=== PATIENT | female | born 1945 | race Caucasian/White ===

== ENCOUNTER → 2016-12-27 | Outpatient (CLI) | payer BC ==
[~2016-12-27] MED LIST: ALLO100T PO; ASPEC81 PO; ATEN-175 PO; ATOR-24 PO; CLTP PO; LEVO-217 PO; LIDOCAINE HCL 2% 2 ML VIAL (20MG/ML) ONE; LISI-725 PO; MAGNESIUM PO; MIDAZOLAM HCL 1 MG/ML 2ML VIAL ONE; MULT-506 PO; NIAC1TAB59 PO; PRLSR20 PO; PROPOFOL IV EMULSION 10 MG/ML 20 ML VIAL IV ONE; TEMA15CA4 PO
[2016-12-27 12:23] LABS: HEMATOCRIT 40.1 % (37-47); MEAN CELL VOLUME 93.9 fL (80-100); MEAN CORPUSCULAR HEMOGLOBIN 32.1 pg (25-34); MEAN CORPUSCULAR HGB CONC 34.2 g/dl (32-36); MEAN PLATELET VOLUME 9.1 fL (7.4-10.4); PLATELET COUNT 145 K/uL (130-400); RED BLOOD COUNT 4.27 M/uL (4.2-5.4); WHITE BLOOD COUNT 4.78 K/uL (4.8-10.8)
[2016-12-27 13:01] LABS: ESTIMATED AVERAGE GLUCOSE 120 mg/dl; HA1C FLAG Normal (Normal)
[2016-12-27 13:05] LABS: ALT/SGPT 42 U/L (12-78); AST/SGOT 31 U/L (15-37); BLOOD UREA NITROGEN 26 mg/dl (7-18); BUN/CREATININE RATIO 18.4 (10-20); CALCIUM 9.6 mg/dl (8.5-10.1); CARBON DIOXIDE 25 mmol/L (21-32); CHLORIDE 104 mmol/L (98-107); CHOLESTEROL 132 mg/dl (0-200); GLUCOSE,FASTING 111 mg/dl (70-99); MAGNESIUM 2.1 mg/dl (1.8-2.4); POTASSIUM 3.9 mmol/L (3.5-5.1); SODIUM 138 mmol/L (136-145); TRIGLYCERIDES 193 mg/dl (0-150); VERY LOW DENSITY LIPOPROT CALC 39 mg/dl
[2016-12-27 13:13] LABS: ALKALINE PHOSPHATASE 74 U/L (45-117); CHOLESTEROL/HDL RATIO 2.7; HDL CHOLESTEROL 49 mg/dl
== END | disposition home or self-care (01) ==
LOC: C.LABPBG 07:32
PROVIDERS: ATTEND Family Medicine
DX: I34.0 Nonrheumatic mitral (valve) insufficiency (principal); I10 Essential (primary) hypertension; Z82.49 Family history of ischemic heart disease and other diseases of the circulatory system; Z79.899 Other long term (current) drug therapy

== ENCOUNTER → 2017-07-31 | Outpatient (CLI) | payer BC ==
[~2017-07-31] MED LIST changes: -LIDOCAINE HCL 2% 2 ML VIAL (20MG/ML) ONE; -MIDAZOLAM HCL 1 MG/ML 2ML VIAL ONE; -PROPOFOL IV EMULSION 10 MG/ML 20 ML VIAL IV ONE
[2017-07-31 13:23] LABS: HEMATOCRIT 40.9 % (37-47); MEAN CELL VOLUME 92.7 fL (80-100); MEAN CORPUSCULAR HEMOGLOBIN 31.7 pg (25-34); MEAN CORPUSCULAR HGB CONC 34.2 g/dl (32-36); MEAN PLATELET VOLUME 9.2 fL (7.4-10.4); PLATELET COUNT 152 K/uL (130-400); RED CELL DISTRIBUTION WIDTH CV 13.1 % (11.5-14.5); RED CELL DISTRIBUTION WIDTH SD 44.5 fL (36.4-46.3)
[2017-07-31 14:12] LABS: ALBUMIN 3.9 gm/dl (3.4-5.0); ALT/SGPT 44 U/L (12-78); AST/SGOT 30 U/L (15-37); BLOOD UREA NITROGEN 28 mg/dl (7-18); CALCIUM 9.2 mg/dl (8.5-10.1); CARBON DIOXIDE 27 mmol/L (21-32); CREATININE 1.43 mg/dl (0.60-1.20); GLUCOSE,FASTING 124 mg/dl (70-99); POTASSIUM 4.2 mmol/L (3.5-5.1); SODIUM 136 mmol/L (136-145)
[2017-07-31 14:27] LABS: ALKALINE PHOSPHATASE 74 U/L (45-117); CHOLESTEROL 118 mg/dl (0-200); LDL CHOLESTEROL (DIRECT) 42 mg/dl; TOTAL PROTEIN 7.8 gm/dl (6.4-8.2)
== END | disposition home or self-care (01) ==
LOC: C.LABPBG 07:39
PROVIDERS: ATTEND Internal Medicine Cardiovascular Disease
DX: I10 Essential (primary) hypertension (principal); I34.0 Nonrheumatic mitral (valve) insufficiency; R06.02 Shortness of breath; E78.5 Hyperlipidemia, unspecified; Z79.899 Other long term (current) drug therapy

== ENCOUNTER → 2018-01-25 | Outpatient (CLI) | payer BC ==
[2018-01-25 12:21] LABS: HEMATOCRIT 38.7 % (37-47); HEMOGLOBIN 12.8 g/dL (12.0-16.0); MEAN CELL VOLUME 94.2 fL (80-100); MEAN CORPUSCULAR HEMOGLOBIN 31.1 pg (25-34); MEAN CORPUSCULAR HGB CONC 33.1 g/dl (32-36); MEAN PLATELET VOLUME 9.3 fL (7.4-10.4); PLATELET COUNT 183 K/uL (130-400); RED CELL DISTRIBUTION WIDTH CV 13.2 % (11.5-14.5); RED CELL DISTRIBUTION WIDTH SD 44.6 fL (36.4-46.3)
[2018-01-25 12:54] LABS: ALBUMIN 3.8 gm/dl (3.4-5.0); ALKALINE PHOSPHATASE 79 U/L (45-117); ALT/SGPT 39 U/L (12-78); AST/SGOT 28 U/L (15-37); BLOOD UREA NITROGEN 24 mg/dl (7-18); CALCIUM 9.6 mg/dl (8.5-10.1); CARBON DIOXIDE 28 mmol/L (21-32); CHOLESTEROL 117 mg/dl (0-200); CREATININE 1.57 mg/dl (0.60-1.20); GLUCOSE 106 mg/dl (70-99); LDL CHOLESTEROL (DIRECT) 37 mg/dl; POTASSIUM 4.8 mmol/L (3.5-5.1); SODIUM 137 mmol/L (136-145); TOTAL PROTEIN 7.4 gm/dl (6.4-8.2)
[2018-01-25 13:28] LABS: HEMOGLOBIN A1C 6.2 % (4.5-5.6)
== END | disposition home or self-care (01) ==
LOC: C.LABPBG 07:34
PROVIDERS: ATTEND Internal Medicine Cardiovascular Disease
DX: R07.9 Chest pain, unspecified (principal); R06.02 Shortness of breath; I10 Essential (primary) hypertension; R53.83 Other fatigue; E78.5 Hyperlipidemia, unspecified

== ENCOUNTER 2022-01-21 16:44 | Observation (INO) ==
[2022-01-21] MEDS ORDERED: SODIUM CHLORIDE 0.9% 1000ML 1,000 ML IV SCH (17:15)
[2022-01-21 18:16] LABS: Basophils # (auto) 0.01 K/uL (0-0.2); Basophils % (auto) 0.3 %; Eosinophils # (auto) 0.02 K/uL (0-0.50); Eosinophils % (auto) 0.6 %; Hematocrit (blood only) 35.8 % (34.1-44.9); Immature Granulocytes # (auto) 0.01 K/uL (0.00-0.02); Immature Granulocytes % (auto) 0.3 %; Lymphocytes # (auto) 0.89 K/uL (1.2-3.4); Lymphocytes % (auto) 27.8 %; Mean Platelet Volume 8.8 fL (9.4-12.3); Monocytes # (auto) 0.35 K/uL (0.24-0.82); Monocytes % (auto) 10.9 %; Neutrophils # (auto) 1.92 K/uL (1.4-6.5); Neutrophils % (auto) 60.1 %; Platelet Count 114 K/uL (130-400)
--- NOTE | 2022-01-21 18:30 | XRay Report ---
XR chest 1V portable HISTORY: weakness COMPARISON: Chest 07/01/2011. FINDINGS: The lungs are clear. Cardiac silhouette is normal in size. No pleural effusions. No pneumot horax. Calcified plaque noted at the aortic knob. This remains unchanged. IMPRESSION: No acute process. ACT 112: Negative or not required by law. Electronically signed by: López Lara M.D. 01/21/2022 6:29 PM
[2022-01-21 18:39] LABS: Mean Corpuscular Hgb Conc 33.5 g/dL (32.0-36.0); Mean Corpuscular Volume 92.5 fL (80.0-100.0); Red Blood Count 3.87 M/uL (3.93-5.22)
[2022-01-21 18:41] LABS: Albumin Globulin Ratio 1.5 (0.9-2); Albumin Level 3.8 gm/dl (3.4-5.0); BUN Creatinine Ratio 17.6 (10-20); Bilirubin,Total 0.7 mg/dl (0.2-1.0); Calcium 8.4 mg/dl (8.5-10.1); Creatinine Clr Calc Pharmacy 31.2 ml/min; Est GFR (African American) 42.1 ml/min; Est GFR (Non-African American) 36.3 ml/min; Globulin 2.5 gm/dl (2.5-4.0); Magnesium 1.6 mg/dl (1.7-2.4); Potassium 4.4 mmol/L (3.5-5.1); Total Protein 6.3 gm/dl (6.0-8.3)
[2022-01-21 18:43] LABS: Troponin I High Sensitivity 19.8 pg/ml (0-14)
--- NOTE | 2022-01-21 21:35 | History & Physical Report ---
Date of Service January 21, 2022 Assessment & Plan (1) Diarrhea: Plan: - Started on 01/13, ongoing since then with yellow diarrhea immediately following any meals. - LFTs within normal limits, patient is without her gallbladder. - KUB ordered, consider CT A/P although would have to be done without contrast as she has CKD. - Also order GI stool panel, once back if C. difficile ruled out, can give antidiarrheal--would start with Questran. - Supportive care if nonspecific colitis: IVF, Tylenol for pain/fever, anti emetics, anti-diarrheals. (2) COVID-19: Plan: - Tested positive on here, positive as of 01/11 with respiratory symptoms. Her diarrhea started 2 days later on 01/13, has been without any respiratory symptoms and is on room air. - Not vaccinated. - Supportive care for now, Tylenol, antiemetics, Tessalon Perles should she develop cough. - No indiction for Rituximab or Decadron currently. (3) Pancytopenia: Plan: - Most likely 2/2 secondary to COVID infection, - Daily CBC. (4) Hypomagnesemia: Plan: - 1.6, will replete and recheck with AM labs. (5) Elevated troponin: Plan: - Initial 19.8, repeat 24.6. EKG with NSR, no evidence of ischemia or infarct. Patient without any CP. Suspect midlly elevated due to COVID infection. - Trend overnight and admit to monitored bed. (6) Hypertension: Plan: - Hold lisinopril for now. - Has CKD, BUN and creatinine consistent with baseline, however will hold for now at least while we rehydrate her. (7) Hyperlipidemia: Plan: - Continue atorvastatin 20 mg at night. (8) Hypothyroidism: Plan: - Continue levothyroxine 25 mcg daily. - Checking TSH. (9) Insomnia: Plan: - Continue temazepam as needed. (10) Type 2 diabetes mellitus: Plan: - Diet and exercise controlled. Glucose on BMP 109. Last A1c in August was 6.4%. - A1c with a.m. labs. (11) Gout: Plan: - Continue allopurinol 100 mg every other day. (12) Chronic kidney disease, stage III (moderate): Plan: - BUN 5 and creatinine at 1.42, both at baseline today. -Receiving IVF as above for dehydration due to diarrhea illness. (13) Acid reflux: Plan: - Continue Tums as needed. Plan - Admit to med telemetry will we trend troponin. - SCDs and Heparin for VTE ppx. - Full Code. History of Present Illness Chief Complaint: nausea, vomiting, diarrhea and SOB Primary Care Provider: Breanna Evans DO Rola Gaytan is a 76 y/o female with past medical history of hypertension, hyperlipidemia, hypothyroidism, DM2, CKD 3, GERD, gout, and insomnia who presents today with ongoing diarrhea for over a week now. Patient began experiencing this on January 13, she is having yellow diarrhea that follows any meal. She not had any fever or chills, abdominal pain, nausea, vomiting, or blood in the stool. She has not been out to eat recently or prior to onset of diarrhea, no history of C. difficile or recent antibiotic use, no recent travel. Her is sick at home with COVID-19 infection, he tested positive on 01/11. His symptoms are respiratory in nature, he has not experienced diarrhea. In ED, she is hypertensive 160/101, vital signs within normal limits, 97% on room air. Labs significant for pancytopenia, WBC 3.20, RBC 3.87, platelets 114. Sodium slightly low at 133, BUN 25 and creatinine 1.42 appears to be her baseline. Calcium 8.4, magnesium 1.6, initial hs trop 19.8, repeat 24.6. CXR without acute process noted. Allergies Allergy/AdvReac Type Severity Reaction Status Date / Time ezetimibe Allergy Intermediate RASH Verified 01/21/22 18:36 Sulfa (Sulfonamide AdvReac Intermediate N/V Verified 01/21/22 18:36 Antibiotics) Home Medications Medication Instructions Recorded Confirmed Type aspirin 81 mg tablet,delayed 81 mg PO HS 02/23/19 01/21/22 History release loratadine 10 mg tablet (Claritin) 10 mg PO DAILY PRN allergy symptoms 03/04/20 01/21/22 History temazepam 15 mg capsule 15 mg PO HS PRN sleep #30 caps 11/08/20 01/21/22 Rx calcium carbonate 600 mg-vitamin 1 tab PO DAILY 03/07/21 01/21/22 History D3 20 mcg (800 unit) chewable tablet (Caltrate 600 plus D) multivitamin 1 tab PO DAILY 03/07/21 01/21/22 History lisinopril 40 mg tablet 40 mg PO DAILY #90 tabs 09/06/21 01/21/22 Rx levothyroxine 25 mcg tablet 25 mcg PO DAILY #90 tabs 10/20/21 01/21/22 Rx atenolol 100 mg tablet 100 mg PO DAILY #90 tabs 01/19/22 01/21/22 Rx allopurinol 100 mg tablet 100 mg PO Q OTHER DAY 01/21/22 01/21/22 History atorvastatin 20 mg tablet 20 mg PO HS 01/21/22 01/21/22 History magnesium 250 mg tablet 250 mg PO DAILY 01/21/22 01/21/22 History Past Med/Surg History Medical History (Updated 01/21/22 @ 23:14 by Kamran Bryant) Acid reflux Chronic kidney disease, stage III (moderate) Gout Hemorrhoids History of hiatal hernia History of renal artery stenosis R renal A, s/p stent Hyperlipidemia Hypertension Hypothyroidism Insomnia Internal hemorrhoids 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 Renal artery arteriosclerosis Type 2 diabetes mellitus Surgical History History of cholecystectomy History of hysterectomy d/t DUB History of stent insertion of renal artery R side S/P cataract extraction Family History Brother Bladder cancer Father Cancer Hypertension Mother Diabetes Denies family history of Ovarian cancer Prostate cancer Myocardial infarction Breast cancer Social History Smoking Status: Never smoker Second Hand Exposure: No; Do You Dip or Chew Tobacco: No; Tobacco Cessation Education Requested by Patient: No Hx Alcohol Use: No Hx Substance Use: No Preferred Language: Chinese Communication Ability: Effective Visual Impairment: No Limitations Hearing Ability: Normal Stars Coordinator Required: No Beliefs That Will Affect Care: None marital status: Current Living Situation: Spouse Current Living Situation Comment: and 2 cats current occupational status: retired Other Information That Helps Us Care for You: No Feels Safe at Home: Yes Safety Concerns: Feels Safe At This Time Childhood Exposure to Second-Hand Smoke: Yes Diet Comment: regular caffeine: No during the past year weight has: remained stable Dental Care, Regularly: Yes Physical Activity Frequency: 5-6 Times per Week Seatbelt Use: always Sunscreen Use: Yes Assistive Devices: Glasses Results & Data Results & Data ([facility]) Vital Signs (Past 12 Hours) Vital Signs Temp Pulse Pulse Resp BP BP Pulse Ox 01/21/22 21:00 75 18 160/101 H 97 01/21/22 19:00 72 18 144/73 H 96 01/21/22 16:55 37.1 C 69 22 164/79 H 99 O2 Del Method 01/21/22 21:00 Room Air 01/21/22 19:00 Room Air 01/21/22 16:55 Room Air Laboratory Results Abnormal lab results 01/21/22 01/21/22 01/21/22 Range/Units 17:46 18:02 18:02 WBC 3.20 L (4.8-10.8) K/ul RBC 3.87 L (3.93-5.22) M/uL Plt Count 114 L (130-400) K/uL MPV 8.8 L (9.4-12.3) fL Lymph # (Auto) 0.89 L (1.2-3.4) K/uL Sodium 133 L (136-145) mmol/L BUN 25 H (6-23) mg/dl Creatinine 1.42 H (0.6-1.2) mg/dl Glucose 109 H (70-99(Fasting)) mg/dl Calcium 8.4 L (8.5-10.1) mg/dl Magnesium 1.6 L (1.7-2.4) mg/dl Troponin I High Sens 19.8 H (0-14) pg/ml SARS-CoV-2, RNA, NAAT POSITIVE A* (NEGATIVE) 01/21/22 Range/Units 19:57 WBC (4.8-10.8) K/ul RBC (3.93-5.22) M/uL Plt Count (130-400) K/uL MPV (9.4-12.3) fL Lymph # (Auto) (1.2-3.4) K/uL Sodium (136-145) mmol/L BUN (6-23) mg/dl Creatinine (0.6-1.2) mg/dl Glucose (70-99(Fasting)) mg/dl Calcium (8.5-10.1) mg/dl Magnesium (1.7-2.4) mg/dl Troponin I High Sens 24.6 H (0-14) pg/ml SARS-CoV-2, RNA, NAAT (NEGATIVE) Diagnostic Findings Chest X-Ray 01/21/22 17:01 XR chest 1V portable HISTORY: weakness COMPARISON: Chest 07/01/2011. FINDINGS: The lungs are clear. Cardiac silhouette is normal in size. No pleural effusions. No pneumothorax. Calcified plaque noted at the aortic knob. This remains unchanged. IMPRESSION: No acute process. ACT 112: Negative or not required by law. Electronically signed by: López Lara M.D. 01/21/2022 6:29 PM ECG Additional Comments: Normal sinus rhythm Normal ECG When compared with ECG of 01-JUL-2011 08:22, No significant change was found. Code Status & VTE Plan Code Status Full Code. Supervising Physician Co-Signing Physician Notes Attending addendum: I have physically seen this patient, have supervised the LEVI's activities, and agree with the H&P unless as otherwise noted. Assessment and Plan: Nausea/vomiting/diarrhea- Order KUB to assess for possible bowel obstruction versus ileus KUB unrevealing, will will consider CT abdomen pelvis Order stool PCR Cholestyramine 4 g p.o. twice daily to 4 times daily to control symptoms LR at 80 mils per hour Acetaminophen 650 mg p.o. every 6 hours as needed for mild pain or fever Elevated troponin- The patient will be admitted to telemetry for serial cardiac enzymes, serial EKG's, cardiac rhythm monitoring and a 2-D echocardiogram with Dopplers. Troponin initially 19.8, with follow-up 24.6 Likely supply demand mismatch Follow serially COVID-19 positivity- Pulse ox 96% room air Unvaccinated Symptomatic control as above No indication for remdesivir or dexamethasone CKD stage III- Creatinine 1.42 on admission At baseline 1.36-1.60 Follow laboratory serially Did receive 1 L normal saline in ED Hydration otherwise as noted PG Care Time/CCT Total # of Minutes Spent Total Time Spent with Patient: Total time spent is greater than 50% in coordination of care (as documented) at patient's floor/unit and/or counseling patient: Coding Level of Care Code 22926 Initial Inpt Care Lvl 2 Diagnoses Diarrhea R19.7 COVID-19 U07.1 Pancytopenia D61.818 Hypomagnesemia E83.42 Elevated troponin R77.8 Hypertension I10 Hyperlipidemia E78.5 Hypothyroidism E03.9 Insomnia G47.00 Type 2 diabetes mellitus E11.9 Gout M10.9 Chronic kidney disease, stage III (moderate) N18.3 Acid reflux K21.9
--- NOTE | 2022-01-21 22:59 | Emergency Department Note ---
History of Present Illness General Chief complaint: Diarrhea Stated complaint: NAUSEA, VOMITING, ILLNESS Time Seen by Provider: 01/21/22 17:09 History of Present Illness Provider Complaint: + nausea, + vomiting and + diarrhea Onset (ago): week(s) (1.5) Description of Vomiting: no bilious, no bloody or no coffee grounds Description of Diarrhea: no tarry or no bloody (bright red) Associated Abdominal Pain: No Context: + sick contacts ( was diagnosed with COVID on January 11, 2022); no possible food poisoning, no alcohol abuse or no marijuana use Associated symptoms: + myalgias, + cough, + fever/chills, + malaise, + shortness of breath and + weakness; no syncope or no altered mental status Home Medications Medication Instructions Recorded Confirmed Type aspirin 81 mg tablet,delayed 81 mg PO HS 02/23/19 01/21/22 History release loratadine 10 mg tablet (Claritin) 10 mg PO DAILY PRN allergy symptoms 03/04/20 01/21/22 History temazepam 15 mg capsule 15 mg PO HS PRN sleep #30 caps 11/08/20 01/21/22 Rx calcium carbonate 600 mg-vitamin 1 tab PO DAILY 03/07/21 01/21/22 History D3 20 mcg (800 unit) chewable tablet (Caltrate 600 plus D) multivitamin 1 tab PO DAILY 03/07/21 01/21/22 History lisinopril 40 mg tablet 40 mg PO DAILY #90 tabs 09/06/21 01/21/22 Rx levothyroxine 25 mcg tablet 25 mcg PO DAILY #90 tabs 10/20/21 01/21/22 Rx atenolol 100 mg tablet 100 mg PO DAILY #90 tabs 01/19/22 01/21/22 Rx allopurinol 100 mg tablet 100 mg PO Q OTHER DAY 01/21/22 01/21/22 History atorvastatin 20 mg tablet 20 mg PO HS 01/21/22 01/21/22 History magnesium 250 mg tablet 250 mg PO DAILY 01/21/22 01/21/22 History Allergies Allergy/AdvReac Type Severity Reaction Status Date / Time ezetimibe Allergy Intermediate RASH Verified 01/21/22 18:36 Sulfa (Sulfonamide AdvReac Intermediate N/V Verified 01/21/22 18:36 Antibiotics) Past Med/Surg History Medical History (Updated 01/21/22 @ 23:14 by Kamran Bryant) Acid reflux Chronic kidney disease, stage III (moderate) Gout Hemorrhoids History of hiatal hernia History of renal artery stenosis R renal A, s/p stent Hyperlipidemia Hypertension Hypothyroidism Insomnia Internal hemorrhoids 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 Renal artery arteriosclerosis Type 2 diabetes mellitus Surgical History History of cholecystectomy History of hysterectomy d/t DUB History of stent insertion of renal artery R side S/P cataract extraction Family History Brother Bladder cancer Father Cancer Hypertension Mother Diabetes Denies family history of Ovarian cancer Prostate cancer Myocardial infarction Breast cancer Social History Smoking Status: Never smoker Second Hand Exposure: Yes (as a child); Hx Alcohol Use: No Hx Substance Use: No Preferred Language: Upper Sorbian Communication Ability: Effective Visual Impairment: No Limitations Hearing Ability: Normal Help Desk Analyst Required: No Beliefs That Will Affect Care: None marital status: Current Living Situation: Spouse Current Living Situation Comment: and 2 cats current occupational status: retired Feels Safe at Home: Yes Childhood Exposure to Second-Hand Smoke: Yes Diet Comment: regular caffeine: No during the past year weight has: remained stable Dental Care, Regularly: Yes Physical Activity Frequency: 5-6 Times per Week Seatbelt Use: always Sunscreen Use: Yes Review of Systems A total of 10 systems reviewed and were otherwise negative Physical Exam Vital Signs: Vital Signs - 24 hr 01/21/22 16:55 01/21/22 19:00 01/21/22 21:00 Temperature 37.1 C Temperature Source Oral Pulse Rate 69 Pulse Rate [Right Finger] 72 75 Pulse Rhythm [Righ t Finger] Regular Regular Pulse Strength [Ri ght Finger] Normal Normal Respiratory Rate 22 18 18 Respiratory Effort / Characteristics Non-Labored Non-Labored Respiratory Depth Normal Normal Respiratory Patter n Regular Regular Blood Pressure 164/79 H Blood Pressure [Ri ght Arm] 144/73 H 160/101 H Blood Pressure Nguyen n 107 Blood Pressure Nguyen n [Right Arm] 96 120 Blood Pressure Pos ition [Right Arm] Lying Lying Pulse Oximetry 99 96 97 Oxygen Delivery Me thod Room Air Room Air Room Air Sepsis Recent Feve r Within 48 Hours No Sepsis New/Unexpla ined Change in Men domitila Status No Sepsis Action Take n by Nursing No Action Required Physical Exam: Physical Exam GENERAL: He is oriented to person, place, and time. He appears well-developed and well-nourished. He does not appear distressed. HENT: Exam performed. - Head: Normocephalic and atraumatic. - Right Ear: External ear normal. No mastoid tenderness. - Left Ear: External ear normal. No mastoid tenderness. - Mouth/Throat: The oropharynx is clear and moist. No trismus in the jaw. No dental abscesses or uvula swelling. No oropharyngeal exudate or tonsillar abscesses. EYES: Conjunctivae and EOM are normal. Pupils are equal, round, and reactive to light. Right eye exhibits no discharge. Left eye exhibits no discharge. No scleral icterus. NECK: Normal range of motion. Neck supple. No JVD present. No spinous process tenderness present. No carotid bruit present. No rigidity. No tracheal deviation and normal range of motion present. No Brudzinski's sign and no Kernig's sign noted. CV: Normal rate, regular rhythm, normal heart sounds and intact distal pulses. There is no peripheral edema. Palpable radial pulses bue. PULM/CHEST: Effort normal and breath sounds normal. No respiratory distress. No stridor. He has no wheezes. He has no rales. - Chest Wall: He exhibits no tenderness. ABD: The abdomen is soft. Bowel sounds are normal. He has no distension. No mass is present. There is no tenderness. There is no rebound, no guarding, no Will's sign and no tenderness at McBurney's point. Rovsig negative. MUSC/SKEL: Normal range of motion. There is no peripheral edema, tenderness or deformity. LYMPH: No cervical adenopathy. NEURO: He is alert and oriented to person, place, and time. He has normal strength. No cranial nerve deficit or sensory deficit. Coordination and gait normal. GCS eye subscore is 4. GCS verbal subscore is 5. GCS motor subscore is 6. Cerebellar tests wnl. SKIN: Skin is warm and dry. He is not diaphoretic. PSYCH: He has a normal mood and affect. Behavior is normal. Judgment and thought content normal. Female Course Course 170: The patient was evaluated in room B5. A complete history and physical exam was performed Cardiac monitoring: An order was placed for continuous cardiac monitoring. The monitor shows a rate of 70 with sinus rhythm 2110: Vital signs stable. Labs within normal limits with exception of a high- sensitivity troponin. Delta high-sensitivity troponin does show greater than 20% increase. Patient will be admitted to the [facility]ist team and then from Dr. Leyva's team notified. Administered Medications Discontinued Medications Sodium Chloride (Nss 1000ml) 1,000 mls @ 999 mls/hr IV .Q1H1M SALOME Stop: 01/21/22 18:15 Last Infusion: 01/21/22 19:16 Dose: 0 mls/hr Documented By: Admin: 01/21/22 17:54 Dose: 999 mls/hr Documented By: RAVIN Medical Decision Making Laboratory Data Result diagrams: 01/21/22 18:02 01/21/22 18:02 Lab Results 01/21/22 01/21/22 01/21/22 Range/Units 17:46 18:02 18:02 WBC 3.20 L (4.8-10.8) K/ul RBC 3.87 L (3.93-5.22) M/uL Hgb 12.0 (12.0-16.0) g/dl Hct 35.8 (34.1-44.9) % MCV 92.5 (80.0-100.0) fL MCH 31.0 (25.0-34.0) pg MCHC 33.5 (32.0-36.0) g/dL RDW Std Deviation 44.0 (36.4-46.3) fL RDW Coeff of Dony 13.0 (11.5-14.5) % Plt Count 114 L (130-400) K/uL MPV 8.8 L (9.4-12.3) fL Immature Gran % (Auto) 0.3 % Neut % (Auto) 60.1 % Lymph % (Auto) 27.8 % Gage % (Auto) 10.9 % Eos % (Auto) 0.6 % Baso % (Auto) 0.3 % Neut # (Auto) 1.92 (1.4-6.5) K/uL Lymph # (Auto) 0.89 L (1.2-3.4) K/uL Gage # (Auto) 0.35 (0.24-0.82) K/uL Eos # (Auto) 0.02 (0-0.50) K/uL Baso # (Auto) 0.01 (0-0.2) K/uL Immature Gran # (Auto) 0.01 (0.00-0.02) K/uL Sodium 133 L (136-145) mmol/L Potassium 4.4 (3.5-5.1) mmol/L Chloride 104 (98-107) mmol/L Carbon Dioxide 24 (21-32) mmol/L Anion Gap 5 (3-11) BUN 25 H (6-23) mg/dl Creatinine 1.42 H (0.6-1.2) mg/dl Est Cr Clr Drug Dosing 31.2 ml/min Est GFR ( Amer) 42.1 ml/min Est GFR (Non-Af Amer) 36.3 ml/min BUN/Creatinine Ratio 17.6 (10-20) Glucose 109 H (70-99(Fasting)) mg/dl Calcium 8.4 L (8.5-10.1) mg/dl Magnesium 1.6 L (1.7-2.4) mg/dl Total Bilirubin 0.7 (0.2-1.0) mg/dl AST 35 (13-39) U/L ALT 46 (7-52) U/L Alkaline Phosphatase 65 (34-104) U/L Troponin I High Sens 19.8 H (0-14) pg/ml Total Protein 6.3 (6.0-8.3) gm/dl Albumin 3.8 (3.4-5.0) gm/dl Globulin 2.5 (2.5-4.0) gm/dl Albumin/Globulin Ratio 1.5 (0.9-2) SARS-CoV-2, RNA, NAAT POSITIVE A* (NEGATIVE) 01/21/22 Range/Units 19:57 WBC (4.8-10.8) K/ul RBC (3.93-5.22) M/uL Hgb (12.0-16.0) g/dl Hct (34.1-44.9) % MCV (80.0-100.0) fL MCH (25.0-34.0) pg MCHC (32.0-36.0) g/dL RDW Std Deviation (36.4-46.3) fL RDW Coeff of Dony (11.5-14.5) % Plt Count (130-400) K/uL MPV (9.4-12.3) fL Immature Gran % (Auto) % Neut % (Auto) % Lymph % (Auto) % Gage % (Auto) % Eos % (Auto) % Baso % (Auto) % Neut # (Auto) (1.4-6.5) K/uL Lymph # (Auto) (1.2-3.4) K/uL Gage # (Auto) (0.24-0.82) K/uL Eos # (Auto) (0-0.50) K/uL Baso # (Auto) (0-0.2) K/uL Immature Gran # (Auto) (0.00-0.02) K/uL Sodium (136-145) mmol/L Potassium (3.5-5.1) mmol/L Chloride (98-107) mmol/L Carbon Dioxide (21-32) mmol/L Anion Gap (3-11) BUN (6-23) mg/dl Creatinine (0.6-1.2) mg/dl Est Cr Clr Drug Dosing ml/min Est GFR ( Amer) ml/min Est GFR (Non-Af Amer) ml/min BUN/Creatinine Ratio (10-20) Glucose (70-99(Fasting)) mg/dl Calcium (8.5-10.1) mg/dl Magnesium (1.7-2.4) mg/dl Total Bilirubin (0.2-1.0) mg/dl AST (13-39) U/L ALT (7-52) U/L Alkaline Phosphatase (34-104) U/L Troponin I High Sens 24.6 H (0-14) pg/ml Total Protein (6.0-8.3) gm/dl Albumin (3.4-5.0) gm/dl Globulin (2.5-4.0) gm/dl Albumin/Globulin Ratio (0.9-2) SARS-CoV-2, RNA, NAAT (NEGATIVE) Imaging Data Radiologist's Impression: XR chest 1V portable HISTORY: weakness COMPARISON: Chest 07/01/2011. FINDINGS: The lungs are clear. Cardiac silhouette is normal in size. No pleural effusions. No pneumothorax. Calcified plaque noted at the aortic knob. This remains unchanged. IMPRESSION: No acute process. ACT 112: Negative or not required by law. Electronically signed by: López Lara M.D. 01/21/2022 6:29 PM Dictated:01/21/221826 Transcribed: 01/21/221826 ECG Data Indication: SOB/dyspnea Rate (beats per minute): 70 Rhythm: normal sinus Findings: no ST depression, no ST elevation or no prolonged QT MDM Narrative 1709: The patient was evaluated in room B5. A complete history and physical exam was performed Cardiac monitoring: An order was placed for continuous cardiac monitoring. The monitor shows a rate of 70 with sinus rhythm 2109: Vital signs stable. Labs within normal limits with exception of a high- sensitivity troponin. Delta high-sensitivity troponin does show greater than 20% increase. Patient will be admitted to the [facility] hospitalist team and then from Dr. Leyva's team notified. Impression & Plan COVID-19, Elevated troponin Discharge Plan Visit Data Chief Complaint: Diarrhea Stated Complaint: NAUSEA, VOMITING, ILLNESS ED Provider: Kamran Bryant Discharge Problem: COVID-19, Elevated troponin Patient Disposition: Being Evaluated by Hospitalist Forms Stand Alone Forms: My [facility] Prescriptions Prescriptions: No Action temazepam 15 mg capsule 15 mg PO HS PRN (Reason: sleep) Qty: 30 0RF levothyroxine 25 mcg tablet 25 mcg PO DAILY Qty: 90 1RF atenolol 100 mg tablet 100 mg PO DAILY Qty: 90 1RF loratadine [Claritin] 10 mg tablet 10 mg PO DAILY PRN (Reason: allergy symptoms) lisinopril 40 mg tablet 40 mg PO DAILY Qty: 90 1RF aspirin 81 mg tablet,delayed release (DR/EC) 81 mg PO HS Caltrate 600 plus D 600 mg (1,500 mg)-800 unit tablet,chewable 1 tab PO DAILY multivitamin Tablet 1 tab PO DAILY magnesium 250 mg Tablet 250 mg PO DAILY atorvastatin 20 mg tablet 20 mg PO HS allopurinol 100 mg tablet 100 mg PO Q OTHER DAY Referrals Referrals: Breanna Evans DO [Primary Care Provider] -
[2022-01-22] MEDS ORDERED: TEMAZEPAM 15 MG CAPSULE PO PRN (00:51)
[2022-01-22] MEDS ORDERED: ALBUTEROL 0.083% NEBU SOLN 3 ML VIAL NEB PRN (00:51)
[2022-01-22] MEDS ORDERED: ONDANSETRON INJ 2 MG/ML 2 ML VIAL IV PRN (00:51)
[2022-01-22] MEDS ORDERED: BENZONATATE 100 MG CAPSULE PO PRN (00:51)
[2022-01-22] MEDS ORDERED: LORATADINE 10 MG TAB PO PRN (00:51)
[2022-01-22] MEDS ORDERED: ACETAMINOPHEN 325 MG TAB PO PRN (00:51)
[2022-01-22] MEDS ORDERED: POLYETHYLENE (MIRALAX) 17 GM PACK PO PRN (00:51)
[2022-01-22] MEDS: LACTATED RINGER'S 1,000 ML IV SCH ×2 (01:13→09:06)
[2022-01-22] MEDS: MAGNESIUM SULFATE / D5W 1 GM/100 ML BAG IV SCH ×2 (01:45→03:46)
[2022-01-22 03:17] LABS: Adenovirus F 40/41 PCR Not Detected (NotDetected); Astrovirus PCR Not Detected (NotDetected); Campylobacter PCR Not Detected (NotDetected); Clostridium diff Toxin A/B PCR Not Detected (NotDetected); Cryptosporidium PCR Not Detected (NotDetected); Cyclospora cayetanensis PCR Not Detected (NotDetected); Entamoeba histolytica PCR Not Detected (NotDetected); Enteroaggregative E.coli(EAEC) Not Detected (NotDetected); Enteropathogenic E.coli (EPEC) Not Detected (NotDetected); Enterotoxigenic E.coli (ETEC) Not Detected (NotDetected); Giardia lamblia PCR Not Detected (NotDetected); Norovirus GI/GII PCR Not Detected (NotDetected); Plesiomonas shigelloides PCR Not Detected (NotDetected); Rotavirus A PCR Not Detected (NotDetected); Salmonella PCR Not Detected (NotDetected); Sapovirus PCR Not Detected (NotDetected); Shiga-like Toxin E.coli (STEC) Not Detected (NotDetected); Shigella/Enteroinvasive E.coli Not Detected (NotDetected); Vibrio cholerae PCR Not Detected (NotDetected); Vibrio species PCR Not Detected (NotDetected); Yersinia enterocolitica PCR Not Detected (NotDetected)
[2022-01-22] MEDS ORDERED: LOPERAMIDE HCL 2 MG CAP PO STA (03:41)
[2022-01-22] MEDS: LEVOTHYROXINE SODIUM 25 MCG TABLET PO SCH (05:57)
[2022-01-22 06:48] LABS: Hematocrit (blood only) 37.9 % (34.1-44.9); Hemoglobin 12.7 g/dl (12.0-16.0); Mean Corpuscular Hemoglobin 30.8 pg (25.0-34.0); Mean Corpuscular Hgb Conc 33.5 g/dL (32.0-36.0); Mean Platelet Volume 9.1 fL (9.4-12.3); Platelet Count 147 K/uL (130-400); RDW Standard Deviation 43.8 fL (36.4-46.3); Red Blood Count 4.12 M/uL (3.93-5.22)
[2022-01-22 06:51] LABS: Albumin Globulin Ratio 1.6 (0.9-2); Albumin Level 3.9 gm/dl (3.4-5.0); BUN Creatinine Ratio 15.4 (10-20); Bilirubin,Total 0.8 mg/dl (0.2-1.0); Calcium 8.7 mg/dl (8.5-10.1); Creatinine Clr Calc Pharmacy 33.4 ml/min; Est GFR (African American) 46.8 ml/min; Est GFR (Non-African American) 40.4 ml/min; Globulin 2.4 gm/dl (2.5-4.0); Magnesium 2.5 mg/dl (1.7-2.4); Potassium 4.5 mmol/L (3.5-5.1); Total Protein 6.3 gm/dl (6.0-8.3)
[2022-01-22 06:58] LABS: Basophils # (auto) 0.01 K/uL (0-0.2); Basophils % (auto) 0.2 %; Eosinophils # (auto) 0.04 K/uL (0-0.50); Eosinophils % (auto) 0.9 %; Immature Granulocytes # (auto) 0.02 K/uL (0.00-0.02); Immature Granulocytes % (auto) 0.5 %; Lymphocytes # (auto) 1.23 K/uL (1.2-3.4); Lymphocytes % (auto) 28.6 %; Monocytes # (auto) 0.39 K/uL (0.24-0.82); Monocytes % (auto) 9.1 %; Neutrophils # (auto) 2.61 K/uL (1.4-6.5); Neutrophils % (auto) 60.7 %; RBC Morphology Unremarkable
[2022-01-22] MEDS ORDERED: LOPERAMIDE HCL 2 MG CAP PO PRN (08:09)
[2022-01-22] MEDS: CALCIUM 600MG + VIT D 400 IU TAB PO SCH (08:14)
[2022-01-22] MEDS: MAGNESIUM OXIDE 400 MG TAB PO SCH (08:15)
[2022-01-22] MEDS: ATENOLOL 50 MG TABLET PO SCH (08:15)
--- NOTE | 2022-01-22 08:42 | XRay Report ---
KUB HISTORY: Nausea. Vomiting. Diarrhea COMPARISON: None. FINDINGS: The bowel gas pattern is unremarkable. There are no dilated loops of small bowel to suggest an obstruction. No renal calculi. No ureteral calculi. No pneumoperitoneum or pneumatosis. Prior ch olecystectomy. The lung bases appear clear. IMPRESSION: No evidence for bowel obstruction. ACT 112: Negative or not required by law. Electronically signed by: López Lara M.D. 01/22/2022 8:41 AM
[2022-01-22] MEDS ORDERED: allopurinoL 100 MG TAB PO SCH (09:00)
[2022-01-22] MEDS ORDERED: lisinopril 40 MG TAB PO SCH (09:00)
--- NOTE | 2022-01-22 09:11 | Electrocardiogram Report ---
Test Reason : Blood Pressure : / mmHG Vent. Rate : 070 BPM Atrial Rate : 070 BPM P-R Int : 172 ms QRS Dur : 082 ms QT Int : 376 ms P-R-T Axes : 057 005 049 degrees QTc Int : 406 ms Normal sinus rhythm Normal ECG When compared with ECG of 01-JUL-2011 08:22, No significant change was found Confirmed by Johnnie Tipton ([id number]) on 01/22/2022 9:11:27 AM Referred By: REFERRED SELF Confirmed By:Johnnie Tipton
[2022-01-22] MEDS: ENOXAPARIN INJ 40 MG/0.4 ML SYR SQ SCH ×2 (10:09→20:51)
--- NOTE | 2022-01-22 14:08 | XCELERA ---
[id number]
--- NOTE | 2022-01-22 20:35 | Hospitalist Progress Note ---
Date of Service January 22, 2022 Assessment & Plan (1) Diarrhea: Plan: 2nd to COVID infection. Other w/u including Stool BioFire completely negative. Ok to use loperamide prn. Diarrhea should be resolving soon - she is well past 7 days into her illness. IV fluids today, advance diet. Labs am. (2) COVID-19: Plan: 01/13/22 - first day of illness. Mainly GI symptoms. No pulmonary symptoms. O2 sats wnl. CXR neg for pneumonia. No indication for steroids, etc. Cont airborne isolation. Rx #1. (3) Pancytopenia: Plan: secondary to COVID infection. typically self-limited. daily CBC. (4) Hypomagnesemia: Plan: repleted resolved (5) Elevated troponin: Plan: myocardial demand ischemia in setting of COVID illness echo wnl no further w/u (6) Hypertension: Plan: Lower CARLOS to 20mg/day as BPs are low-normal in setting of dehydration (7) Hyperlipidemia: Plan: Continue atorvastatin 20 mg at night. LFTs wnl (8) Hypothyroidism: Plan: Continue levothyroxine 25 mcg daily. TSH wnl. (9) Insomnia: Plan: Continue temazepam as needed. (10) Type 2 diabetes mellitus: Plan: Diet and exercise controlled. Last A1c in August was 6.4%. New A1c pending. BSGs controlled here. (11) Gout: Plan: Continue allopurinol 100 mg every other day for prophylaxis. No flare at this time. (12) Chronic kidney disease, stage III (moderate): Plan: At baseline today on BMP. BMP in am for stability. (13) Acid reflux: Plan lovenox BID for DVT proph advance diet attempted to call pt's at # listed in chart - phone rang & range - no answer likely can d/c home tomorrow Admission and Anticipated Discharge Date Admission Date: January 21, 2022 Subjective patient feeling better diarrhea MUCH improved with loperamide no nausea tolerating clears no vomiting mild fatigue but no fevers tele overnight wnl Review of Systems Review of Systems: gen - no fevers or chills cv - no chest pain pulm - no cough or dyspnea HENT - no loss of taste or smell Physical Exam Physical Exam: gen - NAD, looks good mouth - MMM neck - no JVD heart - RRR, s1 s2, no murmur lungs - CTA b/l abd - soft NT ND BS+ ext - no edema, pulses 2+ b/l psych - a/o x 3 Results & Data Results & Data ([facility]) Vital Signs (Past 12 Hours) Vital Signs Temp Pulse Resp BP Pulse Ox O2 Del Method 01/22/22 18:37 37.3 C 65 18 108/70 95 Room Air 01/22/22 15:06 37.1 C 60 18 126/79 96 Room Air 01/22/22 10:52 37.0 C 67 18 136/85 97 Room Air Laboratory Results Laboratory Results - last 24 hr 01/21/22 01/22/22 01/22/22 18:02 01:27 02:19 WBC RBC Hgb Hct MCV MCH MCHC RDW Std Deviation RDW Coeff of Dony Plt Count MPV Immature Gran % (Auto) Neut % (Auto) Lymph % (Auto) Phillips % (Auto) Eos % (Auto) Baso % (Auto) Neut # (Auto) Lymph # (Auto) Phillips # (Auto) Eos # (Auto) Baso # (Auto) Immature Gran # (Auto) RBC Morphology Sodium Potassium Chloride Carbon Dioxide Anion Gap BUN Creatinine Est Cr Clr Drug Dosing Est GFR ( Amer) Est GFR (Non-Af Amer) BUN/Creatinine Ratio Glucose Estimat Average Glucose Hemoglobin A1c Calcium Ionized Calcium Magnesium Total Bilirubin AST ALT Alkaline Phosphatase Troponin I High Sens 33.0 H Total Protein Albumin Globulin Albumin/Globulin Ratio Lipase Procalcitonin TSH 1.732 Stl C. cayetanensis PCR Not Detected Stool Rotavirus A PCR Not Detected Stl Adenov F 40/41 PCR Not Detected Stool Astrovirus (PCR) Not Detected Stool Campylobacter PCR Not Detected Stl C. diff Tox A/B PCR Not Detected Stool Cryptosporidium PCR Not Detected Stl E.coli Shiga Tox PCR Not Detected Stl Enterotoxigenic E PCR Not Detected Stool EPEC (PCR) Not Detected Stool EAEC (PCR) Not Detected Stl E. histolytica PCR Not Detected Stool Giardia Lamblia PCR Not Detected Stool Salmonella PCR Not Detected Stool Sapovirus (PCR) Not Detected Stl P. shigelloides PCR Not Detected Stl Shigella/EIEC PCR Not Detected St Y.enterocolitica PCR Not Detected Stool Vibrio (PCR) Not Detected Stl Vibrio cholerae PCR Not Detected Stl Norovirus GI/GII PCR Not Detected 01/22/22 01/22/22 01/22/22 05:59 05:59 05:59 WBC 4.30 L RBC 4.12 Hgb 12.7 Hct 37.9 MCV 92.0 MCH 30.8 MCHC 33.5 RDW Std Deviation 43.8 RDW Coeff of Dony 13.0 Plt Count 147 MPV 9.1 L Immature Gran % (Auto) 0.5 Neut % (Auto) 60.7 Lymph % (Auto) 28.6 Phillips % (Auto) 9.1 Eos % (Auto) 0.9 Baso % (Auto) 0.2 Neut # (Auto) 2.61 Lymph # (Auto) 1.23 Phillips # (Auto) 0.39 Eos # (Auto) 0.04 Baso # (Auto) 0.01 Immature Gran # (Auto) 0.02 RBC Morphology Unremarkable Sodium 135 L Potassium 4.5 Chloride 105 Carbon Dioxide 25 Anion Gap 5 BUN 20 Creatinine 1.30 H Est Cr Clr Drug Dosing 33.4 Est GFR ( Amer) 46.8 Est GFR (Non-Af Amer) 40.4 BUN/Creatinine Ratio 15.4 Glucose 108 H Estimat Average Glucose Pending Hemoglobin A1c Pending Calcium 8.7 Ionized Calcium Magnesium 2.5 H Total Bilirubin 0.8 AST 37 ALT 45 Alkaline Phosphatase 66 Troponin I High Sens Total Protein 6.3 Albumin 3.9 Globulin 2.4 L Albumin/Globulin Ratio 1.6 Lipase 33 Procalcitonin TSH Stl C. cayetanensis PCR Stool Rotavirus A PCR Stl Adenov F 40/41 PCR Stool Astrovirus (PCR) Stool Campylobacter PCR Stl C. diff Tox A/B PCR Stool Cryptosporidium PCR Stl E.coli Shiga Tox PCR Stl Enterotoxigenic E PCR Stool EPEC (PCR) Stool EAEC (PCR) Stl E. histolytica PCR Stool Giardia Lamblia PCR Stool Salmonella PCR Stool Sapovirus (PCR) Stl P. shigelloides PCR Stl Shigella/EIEC PCR St Y.enterocolitica PCR Stool Vibrio (PCR) Stl Vibrio cholerae PCR Stl Norovirus GI/GII PCR 01/22/22 01/22/22 01/22/22 05:59 05:59 08:05 WBC RBC Hgb Hct MCV MCH MCHC RDW Std Deviation RDW Coeff of Dony Plt Count MPV Immature Gran % (Auto) Neut % (Auto) Lymph % (Auto) Phillips % (Auto) Eos % (Auto) Baso % (Auto) Neut # (Auto) Lymph # (Auto) Phillips # (Auto) Eos # (Auto) Baso # (Auto) Immature Gran # (Auto) RBC Morphology Sodium Potassium Chloride Carbon Dioxide Anion Gap BUN Creatinine Est Cr Clr Drug Dosing Est GFR ( Amer) Est GFR (Non-Af Amer) BUN/Creatinine Ratio Glucose Estimat Average Glucose Hemoglobin A1c Calcium Ionized Calcium 1.16 Magnesium Total Bilirubin AST ALT Alkaline Phosphatase Troponin I High Sens 37.2 H Total Protein Albumin Globulin Albumin/Globulin Ratio Lipase Procalcitonin < 0.05 TSH Stl C. cayetanensis PCR Stool Rotavirus A PCR Stl Adenov F PCR Stool Astrovirus (PCR) Stool Campylobacter PCR Stl C. diff Tox A/B PCR Stool Cryptosporidium PCR Stl E.coli Shiga Tox PCR Stl Enterotoxigenic E PCR Stool EPEC (PCR) Stool EAEC (PCR) Stl E. histolytica PCR Stool Giardia Lamblia PCR Stool Salmonella PCR Stool Sapovirus (PCR) Stl P. shigelloides PCR Stl Shigella/EIEC PCR St Y.enterocolitica PCR Stool Vibrio (PCR) Stl Vibrio cholerae PCR Stl Norovirus GI/GII PCR 01/22/22 14:13 WBC RBC Hgb Hct MCV MCH MCHC RDW Std Deviation RDW Coeff of Dony Plt Count MPV Immature Gran % (Auto) Neut % (Auto) Lymph % (Auto) Phillips % (Auto) Eos % (Auto) Baso % (Auto) Neut # (Auto) Lymph # (Auto) Phillips # (Auto) Eos # (Auto) Baso # (Auto) Immature Gran # (Auto) RBC Morphology Sodium Potassium Chloride Carbon Dioxide Anion Gap BUN Creatinine Est Cr Clr Drug Dosing Est GFR ( Amer) Est GFR (Non-Af Amer) BUN/Creatinine Ratio Glucose Estimat Average Glucose Hemoglobin A1c Calcium Ionized Calcium Magnesium Total Bilirubin AST ALT Alkaline Phosphatase Troponin I High Sens 36.1 H Total Protein Albumin Globulin Albumin/Globulin Ratio Lipase Procalcitonin TSH Stl C. cayetanensis PCR Stool Rotavirus A PCR Stl Adenov F 40 PCR Stool Astrovirus (PCR) Stool Campylobacter PCR Stl C. diff Tox A/B PCR Stool Cryptosporidium PCR Stl E.coli Shiga Tox PCR Stl Enterotoxigenic E PCR Stool EPEC (PCR) Stool EAEC (PCR) Stl E. histolytica PCR Stool Giardia Lamblia PCR Stool Salmonella PCR Stool Sapovirus (PCR) Stl P. shigelloides PCR Stl Shigella/EIEC PCR St Y.enterocolitica PCR Stool Vibrio (PCR) Stl Vibrio cholerae PCR Stl Norovirus GI/GII PCR PG Care Time/CCT Total # of Minutes Spent Total Time Spent with Patient: Total time spent is greater than 50% in coordination of care (as documented) at patient's floor/unit and/or counseling patient: Coding Level of Care Code 38412 Subseq Hosp Care Lvl 2 Diagnoses Diarrhea R19.7 COVID-19 U07.1 Pancytopenia D61.818 Hypomagnesemia E83.42 Elevated troponin R77.8 Hypertension I10 Hyperlipidemia E78.5 Hypothyroidism E03.9 Insomnia G47.00 Type 2 diabetes mellitus E11.9 Gout M10.9 Chronic kidney disease, stage III (moderate) N18.3 Acid reflux K21.9
[2022-01-22] MEDS ORDERED: ATORVASTATIN 20 MG TAB PO SCH (21:00)
[2022-01-22] MEDS ORDERED: ASPIRIN 81 MG ECTAB PO SCH (21:00)
[2022-01-23] MEDS: LEVOTHYROXINE SODIUM 25 MCG TABLET PO SCH (05:43)
[2022-01-23 06:41] LABS: Basophils # (auto) 0.01 K/uL (0-0.2); Basophils % (auto) 0.3 %; Eosinophils # (auto) 0.09 K/uL (0-0.50); Eosinophils % (auto) 2.6 %; Hematocrit (blood only) 34.4 % (34.1-44.9); Hemoglobin 11.5 g/dl (12.0-16.0); Immature Granulocytes # (auto) 0.03 K/uL (0.00-0.02); Immature Granulocytes % (auto) 0.9 %; Lymphocytes # (auto) 1.48 K/uL (1.2-3.4); Lymphocytes % (auto) 42.8 %; Mean Platelet Volume 8.9 fL (9.4-12.3); Monocytes # (auto) 0.42 K/uL (0.24-0.82); Monocytes % (auto) 12.1 %; Neutrophils # (auto) 1.43 K/uL (1.4-6.5); Neutrophils % (auto) 41.3 %; Platelet Count 126 K/uL (130-400); White Blood Count 3.46 K/ul (4.8-10.8)
[2022-01-23 07:10] LABS: Mean Corpuscular Hemoglobin 30.5 pg (25.0-34.0); Mean Corpuscular Hgb Conc 33.4 g/dL (32.0-36.0); Mean Corpuscular Volume 91.2 fL (80.0-100.0); RDW Coefficient of Variation 13.1 % (11.5-14.5); RDW Standard Deviation 43.8 fL (36.4-46.3); Red Blood Count 3.77 M/uL (3.93-5.22)
[2022-01-23 07:16] LABS: Calcium 8.5 mg/dl (8.5-10.1); Creatinine Clr Calc Pharmacy 34.8 ml/min; Est GFR (African American) 49.1 ml/min; Est GFR (Non-African American) 42.3 ml/min; Potassium 4.4 mmol/L (3.5-5.1)
[2022-01-23] MEDS: CALCIUM 600MG + VIT D 400 IU TAB PO SCH (08:27)
[2022-01-23] MEDS: ATENOLOL 50 MG TABLET PO SCH (08:27)
[2022-01-23] MEDS: ENOXAPARIN INJ 40 MG/0.4 ML SYR SQ SCH (08:28)
[2022-01-23] MEDS: MAGNESIUM OXIDE 400 MG TAB PO SCH (08:28)
[2022-01-23 08:33] LABS: Estimated Average Glucose 143 mg/dl; Hemoglobin A1C 6.6 % (4.5-5.6)
[2022-01-23] MEDS ORDERED: lisinopril 20 MG TAB PO SCH (09:00)
--- NOTE | 2022-01-23 13:05 | Discharge Summary ---
Date of Service January 23, 2022 Admission HPI Per Admitting Provider Rola Gaytan is a 76 y/o female with past medical history of hypertension, hyperlipidemia, hypothyroidism, DM2, CKD 3, GERD, gout, and insomnia who presents today with ongoing diarrhea for over a week now. Patient began experiencing this on January 13, she is having yellow diarrhea that follows any meal. She not had any fever or chills, abdominal pain, nausea, vomiting, or blood in the stool. She has not been out to eat recently or prior to onset of diarrhea, no history of C. difficile or recent antibiotic use, no recent travel. Her is sick at home with COVID-19 infection, he tested positive on 01/11. His symptoms are respiratory in nature, he has not experienced diarrhea. In ED, she is hypertensive 160/101, vital signs within normal limits, 97% on room air. Labs significant for pancytopenia, WBC 3.20, RBC 3.87, platelets 114. Sodium slightly low at 133, BUN 25 and creatinine 1.42 appears to be her baseline. Calcium 8.4, magnesium 1.6, initial hs trop 19.8, repeat 24.6. CXR without acute process noted. Discharge Exam gen - NAD, looks good mouth - MMM neck - no JVD heart - RRR, s1 s2, no murmur lungs - CTA b/l abd - soft NT ND BS+ ext - no edema, pulses 2+ b/l psych - a/o x 3 Discharge Data Allergies Allergy/AdvReac Type Severity Reaction Status Date / Time ezetimibe Allergy Intermediate RASH Verified 01/21/22 18:36 Sulfa (Sulfonamide AdvReac Intermediate N/V Verified 01/21/22 18:36 Antibiotics) Consultations 01/21/22 21:00 ED Decision to Admit Stat Hospital Course (1) Diarrhea: 2nd to COVID infection. Other w/u including Stool BioFire completely negative. Ok to use loperamide prn. Diarrhea should be resolving soon - she is well past 7 days into her illness. IV fluids today, advance diet. Labs am. (2) COVID-19: 01/13/22 - first day of illness. Mainly GI symptoms. No pulmonary symptoms. O2 sats wnl. CXR neg for pneumonia. No indication for steroids, etc. Cont airborne isolation. Rx #1. (3) Pancytopenia: secondary to COVID infection. typically self-limited. daily CBC. (4) Hypomagnesemia: repleted resolved (5) Elevated troponin: myocardial demand ischemia in setting of COVID illness echo wnl no further w/u (6) Hypertension: Lower CARLOS to 20mg/day as BPs are low-normal in setting of dehydration (7) Hyperlipidemia: Continue atorvastatin 20 mg at night. LFTs wnl (8) Hypothyroidism: Continue levothyroxine 25 mcg daily. TSH wnl. (9) Insomnia: Continue temazepam as needed. (10) Type 2 diabetes mellitus: Diet and exercise controlled. Last A1c in August was 6.4%. New A1c pending. BSGs controlled here. (11) Gout: Continue allopurinol 100 mg every other day for prophylaxis. No flare at this time. (12) Chronic kidney disease, stage III (moderate): At baseline today on BMP. BMP in am for stability. (13) Acid reflux: Plan lovenox BID for DVT proph advance diet attempted to call pt's at # listed in chart - phone rang & range - no answer likely can d/c home tomorrow Discharge Plan Discharge Items Patient Disposition: Home - Self-Care Reason For Visit: INTRACTABLE DIARRHEA and COVID-19 Discharge Diagnosis: 1. severe diarrhea due to COVID-19 infection - resolving 2. COVID-19 infection - improving/resolving 3. low magnesium due to diarrhea - resolved Activity: As commented below Activity Comment: gradually increase activities over the next week Non-emergency contact: Primary Care Provider Call non-emergency contact if: you have any medication questions, your symptoms worsen and you have a fever Follow-up/Referrals: Breanna Evans, [Primary Care Provider] - (see Dr Evans within 1 week ) Diet: Carb Consistent or DM2 and Low Fiber Addtl Attending Provider Instructions: Mrs Gaytan, You were hospitalized for severe diarrhea due to COVID-19 infection. You were dehydrated from the illness and your magnesium levels were low. Fortunately there was no evidence of any pneumonia from the COVID. You improved with IV fluids, magnesium replacement, and time. Your diarrhea improved with imodium. We did not find any other infections in the stool (no bacteria, etc). Additionally, your echocardiogram returned normal with normal heart function and anatomy. During the stay we noted that your white blood cell count and your platelet count were mildly low. This is due to the COVID infection itself. The counts typically return to normal within a week or two during the recovery period from your illness. Please have your family doctor repeat your "CBC" blood counts in about 1 week. In the meantime there is nothing else to do for the blood counts. Recommendations - 1. follow a low fiber diet for about 5 days; see handout 2. [id number] imodium (loperamide) 2mg every 4 hours as needed/desired for diarrhea 3. continue to drink plenty of fluids over the next few days 4. plan to take the next few days at home recovering and resting from your illness 5. please CUT IN HALF your lisinopril dose; thus, please take 20mg (1/2 tablet of the 40's) once daily. when you see your family doctor in follow-up they can determine if you should go back to the full 40mg at that time 6. you are likely not contagious to others at this time based on the following --- your symptoms are improving, you have had no recent fever, and you are well over 10+ days into the illness. With that said please plan to spend the next few days at home resting. When you feel up to it you can re-enter the community and do normal activities; please wear a mask when doing so, however 7. repeat CBC in [address] [facility] if - * you have recurrent fevers over 100 degrees * you have vomiting or the diarrhea returns (and is severe) * you are short of breath or have chest pain * any other concerns Continue to feel better! It was our pleasure caring for you, Dr Dubose Pending Studies at Discharge: No Stand-Alone Forms: My [facility], Smoking Cessation Medications and DC Order Prescriptions: New loperamide 2 mg Capsule 2 mg PO Q4H PRN (Reason: diarrhea) Qty: 1 0RF Rx Instructions: purchase [id number] Continued temazepam 15 mg capsule 15 mg PO HS PRN (Reason: sleep) Qty: 30 0RF levothyroxine 25 mcg tablet 25 mcg PO DAILY Qty: 90 1RF atenolol 100 mg tablet 100 mg PO DAILY Qty: 90 1RF loratadine [Claritin] 10 mg tablet 10 mg PO DAILY PRN (Reason: allergy symptoms) aspirin 81 mg tablet,delayed release (DR/EC) 81 mg PO HS Caltrate 600 plus D 600 mg (1,500 mg)-800 unit tablet,chewable 1 tab PO DAILY multivitamin Tablet 1 tab PO DAILY magnesium 250 mg Tablet 250 mg PO DAILY atorvastatin 20 mg tablet 20 mg PO HS allopurinol 100 mg tablet 100 mg PO Q OTHER DAY Changed lisinopril 40 mg tablet 20 mg PO DAILY Qty: 90 1RF Discharge Orders: Discharge Order (Routine); Ordered 01/23/22 Ordered By: Jacobo Bishop/Other Patient Handouts: Low-Fiber Diet, COVID-19 Home Care, Diabetes: Meal Planning, Type 2 Diabetes Admission Data Admit Date/Time: 01/21/22 21:44 Attending Provider: Jacobo Dubose Admit Provider: Enoc Fay Primary Care Provider: Breanna Evans Other Providers: Enoc Fay Coding Diagnoses Diarrhea R19.7 COVID-19 U07.1 Pancytopenia D61.818 Hypomagnesemia E83.42 Elevated troponin R77.8 Hypertension I10 Hyperlipidemia E78.5 Hypothyroidism E03.9 Insomnia G47.00 Type 2 diabetes mellitus E11.9 Gout M10.9 Chronic kidney disease, stage III (moderate) N18.3 Acid reflux K21.9
== END 2022-01-23 15:18 | disposition home or self-care (01) ==
LOC: ED 16:44 → INTOOBSV 21:44 → SUATTDRO 21:44 → EDINP 21:44 → 2S 01-22 00:25
DX: Z88.2 Allergy status to sulfonamides; N18.30 Chronic kidney disease, stage 3 unspecified; R77.8 Other specified abnormalities of plasma proteins; E11.22 Type 2 diabetes mellitus with diabetic chronic kidney disease; Z79.899 Other long term (current) drug therapy; R19.7 Diarrhea, unspecified; Z88.8 Allergy status to other drugs, medicaments and biological substances; E83.42 Hypomagnesemia; E78.5 Hyperlipidemia, unspecified; Z79.82 Long term (current) use of aspirin; M10.9 Gout, unspecified; E03.9 Hypothyroidism, unspecified; D61.818 Other pancytopenia; I12.9 Hypertensive chronic kidney disease with stage 1 through stage 4 chronic kidney disease, or unspecified chronic kidney disease; K21.9 Gastro-esophageal reflux disease without esophagitis; U07.1 COVID-19